=== PATIENT | female | born 1985 | race African-American/Black ===

== ENCOUNTER 2016-12-15 13:03 | Observation (INO) | payer OTHER ==
[~2016-12-15] VITALS: Ht 175.3 cm; Wt 78.9 kg
[2016-12-17] MEDS ORDERED: IRON65TA11 PO (15:34)
[2016-12-17] MEDS ORDERED: PREN-546 PO (15:34)
== END 2016-12-15 16:26 | disposition home or self-care (01) ==
LOC: MLD 13:03
PROVIDERS: ADMIT Obstetrics & Gynecology; ATTEND Obstetrics & Gynecology
DX: O36.8130 Decreased fetal movements, third trimester, not applicable or unspecified (principal); Z3A.38 38 weeks gestation of pregnancy
CPT/HCPCS: 59025; 76805; 76819; G0378; Q0092

== ENCOUNTER 2016-12-17 14:39 | Inpatient (IN) | payer OTHER ==
[~2016-12-17] VITALS: Ht 175.3 cm; Wt 78.9 kg
[2016-12-17] MEDS: LACTATED RINGERS 1,000 ML IV SCH ×2 (00:45→16:51)
[2016-12-17] MEDS ORDERED: OXYTOCIN 10 UNITS/ML VIAL IM ONE (15:25)
[2016-12-17] MEDS ORDERED: OXYTOCIN 20 UNITS/LR PREMIX 1,000 ML IV SCH (15:25)
[2016-12-17] MEDS ORDERED: METHYLERGONOVINE 0.2 MG/ML AMP IM ONE (15:25)
[2016-12-17] MEDS ORDERED: CARBOPROST 250 MCG/ML AMP IM ONE (15:25)
[2016-12-17] MEDS ORDERED: NATURAL IRON65 MG PO (15:34)
[2016-12-17] MEDS ORDERED: PRENATAL VITAMI1 TA2 PO (15:34)
[2016-12-17 15:59] VITALS: BP 104/62
[2016-12-17] MEDS ORDERED: DINOPROSTONE 10 MG SUPP VG SCH (16:25)
[2016-12-18] MEDS: LACTATED RINGERS 1,000 ML IV SCH (00:37)
[2016-12-18] MEDS ORDERED: OXYTOCIN 10 UNITS/ML VIAL ONE (04:13)
[2016-12-18] MEDS ORDERED: OXYTOCIN 20 UNITS/LR PREMIX 1,000 ML IV ONE (05:17)
--- NOTE | 2016-12-18 07:59 | NUR ---
PATIENT HAS BEEN SCREENED AND CATEGORIZED MODERATE NUTRITION RISK. PATIENT WILL BE SEEN WITHIN 3-5 DAYS OF ADMISSION. 12/20/16-12/22/[address] Addendum: 12/21/16 at [address] PATIENT HAS BEEN RESCREENED AND RECATEGORIZED LOW NUTRITION RISK. PATIENT WILL BE SEEN WITHIN 7 DAYS OF ADMISSION. 12/24/[address]
[2016-12-18] MEDS ORDERED: MISOPROSTOL 25 MCG TAB ONE ×2 (17:20→22:24)
[2016-12-19] MEDS ORDERED: NALBUPHINE 10 MG/ML AMP IVP PRN (10:25)
[2016-12-19] MEDS ORDERED: NALBUPHINE HYDROCHLORIDE 10 MG/ML VIAL ONE (10:30)
[2016-12-19] MEDS ORDERED: ROPIVACAINE 0.2%/NS PREMIX 250 ML EPI ONE (11:03)
[2016-12-19] MEDS: LACTATED RINGERS 1,000 ML IV SCH ×2 (11:12→14:23)
[2016-12-19] MEDS ORDERED: OXYTOCIN 10 UNITS/ML VIAL ONE (16:30)
[2016-12-19] MEDS ORDERED: MEASLES, MUMPS, AND RUBELLA 1 VIAL SQVAC PRN (16:50)
[2016-12-19] MEDS ORDERED: OXYTOCIN 10 UNITS/ML VIAL IM PRN (16:50)
[2016-12-19] MEDS ORDERED: BENZOCAINE/MENTHOL 20%-0.5% 60 GM CAN TP PRN (16:50)
[2016-12-19] MEDS ORDERED: TEMAZEPAM 15 MG CAP PO PRN (16:50)
[2016-12-19] MEDS ORDERED: oxyCODONE/APAP 5/325 MG 1 TAB TAB PO PRN (16:50)
[2016-12-19] MEDS ORDERED: IBUPROFEN 800 MG TAB PO PRN (16:50)
[2016-12-19] MEDS ORDERED: METHYLERGONOVINE 0.2 MG/ML AMP IM PRN (16:50)
[2016-12-19] MEDS ORDERED: DOCUSATE SOD/SENNA 50/8.6 MG 1 TAB PO SCH (21:00)
[2016-12-20] MEDS: HYDROcodone/APAP 5/325 MG 1 TAB TAB PO PRN ×2 (01:06→20:19)
[2016-12-21] MEDS: HYDROcodone/APAP 5/325 MG 1 TAB TAB PO PRN (05:51)
== END 2016-12-21 17:54 | disposition home or self-care (01) | DRG 775 ==
LOC: MLD 14:39 → MFCC 12-19 20:36
PROVIDERS: ADMIT Obstetrics & Gynecology; ATTEND Obstetrics & Gynecology
PROC: 10E0XZZ Delivery of Products of Conception, External Approach (ICD-10-PCS; principal; 2016-12-19)
PROC: 10907ZC Drainage of Amniotic Fluid, Therapeutic from Products of Conception, Via Natural or Artificial Opening (ICD-10-PCS; 2016-12-19)
PROC: 3E0P7GC Introduction of Other Therapeutic Substance into Female Reproductive, Via Natural or Artificial Opening (ICD-10-PCS; 2016-12-19)
PROC: 0HQ9XZZ Repair Perineum Skin, External Approach (ICD-10-PCS; 2016-12-19)
PROC: 00HU33Z Insertion of Infusion Device into Spinal Canal, Percutaneous Approach (ICD-10-PCS; 2016-12-19)
PROC: 3E0R3CZ (ICD-10-PCS; 2016-12-19)
DX: O70.0 First degree perineal laceration during delivery (principal); Z3A.39 39 weeks gestation of pregnancy; Z37.0 Single live birth

== ENCOUNTER 2018-04-18 07:17 | Outpatient (CLI) | payer OTHER ==
[~2018-04-18 07:17] MED LIST: FERR-252 PO; PREN-546 PO
[2018-04-18 08:17] LABS: GLUCOSE,FASTING GESTATIONAL 85 mg/dL (70-110)
[2018-04-18 08:42] LABS: BASOPHILS % (AUTO) 0.6 % (0.0-2.0); EOSINOPHILS % (AUTO) 1.2 % (0.0-4.0); HEMATOCRIT 32.3 % (36-48); HEMOGLOBIN 10.2 g/dL (12.0-16.0); LYMPHOCYTES % (AUTO) 29.1 % (20.5-51.1); MEAN CORPUSCULAR HEMOGLOBIN 26 pg (27-31); MEAN CORPUSCULAR HGB CONC 32 g/dL (33-37); MEAN CORPUSCULAR VOLUME 82.8 fL (80-94); MONOCYTES % (AUTO) 5.2 % (1.7-9.3); NEUTROPHILS % (AUTO) 63.9 % (42.2-75.2); PLATELET COUNT (AUTO) 222 K/uL (140-450); RED BLOOD CELL COUNT(AUTO) 3.91 MIL/uL (4.20-5.40); WHITE BLOOD COUNT (AUTO) 5.9 K/uL (4.8-10.8)
[2018-04-18 09:35] LABS: APPEARANCE,URINE SL CLOUDY (CLEAR); BILIRUBIN,URINE NEGATIVE (NEGATIVE); BLOOD, URINE NEGATIVE (NEGATIVE); COLOR,URINE YELLOW (YELLOW); LEUKOCYTE ESTERASE ,URINE NEGATIVE (NEGATIVE); NITRITE, URINE NEGATIVE (NEGATIVE); PH,URINE 5.5 (5.0-9.0); UGLUCOSE NEGATIVE (NEGATIVE)
[2018-04-18 10:41] LABS: CALCIUM OXALATE CRYSTALS,UR 0-10 /HPF (None Seen); RBC,URINE NONE SEEN /HPF (0-5); WBC,URINE 0-5 (RARE) /HPF (0-5)
[2018-04-19 09:07] LABS: HEPATITIS B SURFACE ANTIGEN Negative (Negative)
== END 2018-04-18 17:31 | disposition home or self-care (01) ==
LOC: MLB 07:17
PROVIDERS: ATTEND Obstetrics & Gynecology
DX: O23.10 Infections of bladder in pregnancy, unspecified trimester (principal); Z3A.00 Weeks of gestation of pregnancy not specified
CPT/HCPCS: 36415; 81001; 82951; 83036; 84702; 85025; 86592; 86702; 86762; 86886; 86900; 86901; 87086; 87340; 87491

== ENCOUNTER 2018-07-11 08:29 | Outpatient (CLI) | payer OTHER ==
[2018-07-11 09:01] LABS: BASOPHILS % (AUTO) 0.2 % (0.0-2.0); EOSINOPHILS # (AUTO) 0.1 K/uL (0-0.4); EOSINOPHILS % (AUTO) 0.7 % (0.0-4.0); HEMATOCRIT 33.8 % (36-48); HEMOGLOBIN 10.9 g/dL (12.0-16.0); LYMPHOCYTES # (AUTO) 1.9 K/uL (2.5-16.5); LYMPHOCYTES % (AUTO) 26.2 % (20.5-51.1); MEAN CORPUSCULAR HEMOGLOBIN 28 pg (27-31); MEAN CORPUSCULAR HGB CONC 32 g/dL (33-37); MEAN CORPUSCULAR VOLUME 86.2 fL (80-94); MONOCYTES # (AUTO) 0.4 K/uL (0.8-1.0); MONOCYTES % (AUTO) 5.6 % (1.7-9.3); NEUTROPHILS # (AUTO) 4.8 K/uL (1.8-7.7); NEUTROPHILS % (AUTO) 67.3 % (42.2-75.2); PLATELET COUNT (AUTO) 166 K/uL (140-450); RED BLOOD CELL COUNT(AUTO) 3.92 MIL/uL (4.20-5.40); RED CELL DISTRIBUTION WIDTH 14.4 % (11.6-13.7); WHITE BLOOD COUNT (AUTO) 7.2 K/uL (4.8-10.8)
[2018-07-11 09:19] LABS: GLUCOSE,FASTING GESTATIONAL 81 mg/dL (70-110)
[2018-07-13 06:17] LABS: CHLAMYDIA TRACHOMATIS AMP DNA Negative (Negative)
== END 2018-07-11 18:55 | disposition home or self-care (01) ==
LOC: MLB 08:29
PROVIDERS: ATTEND Obstetrics & Gynecology
DX: Z11.3 Encounter for screening for infections with a predominantly sexual mode of transmission (principal)
CPT/HCPCS: 36415; 82951; 85025; 86592; 87491

== ENCOUNTER 2018-10-01 13:23 | Inpatient (IN) | payer OTHER ==
[~2018-10-01] VITALS: Ht 175.3 cm; Wt 87.5 kg
[2018-10-01] MEDS ORDERED: OXYTOCIN 10 UNITS/ML VIAL IM SCH (13:40)
[2018-10-01] MEDS ORDERED: CARBOPROST 250 MCG/ML AMP IM PRN (13:40)
[2018-10-01] MEDS ORDERED: METHYLERGONOVINE 0.2 MG/ML AMP IM PRN (13:40)
[2018-10-01] MEDS ORDERED: OXYTOCIN 20 UNITS in LACTATED RINGERS 1,000 ML IV SCH (13:40)
[2018-10-01 14:35] LABS: BASOPHILS % (AUTO) 0.3 % (0.0-2.0); EOSINOPHILS % (AUTO) 0.7 % (0.0-4.0); HEMOGLOBIN 11.5 g/dL (12.0-16.0); LYMPHOCYTES % (AUTO) 26.7 % (20.5-51.1); MEAN CORPUSCULAR HEMOGLOBIN 27 pg (27-31); MEAN CORPUSCULAR HGB CONC 32 g/dL (33-37); MEAN CORPUSCULAR VOLUME 85.8 fL (80-94); MONOCYTES # (AUTO) 0.4 K/uL (0.8-1.0); MONOCYTES % (AUTO) 5.8 % (1.7-9.3); NEUTROPHILS % (AUTO) 66.5 % (42.2-75.2); PLATELET COUNT (AUTO) 147 K/uL (140-450); RED CELL DISTRIBUTION WIDTH 14.4 % (11.6-13.7); WHITE BLOOD COUNT (AUTO) 7.5 K/uL (4.8-10.8)
[2018-10-01 14:48] LABS: BILIRUBIN,URINE NEGATIVE (NEGATIVE); BLOOD, URINE TRACE-L (NEGATIVE); COLOR,URINE YELLOW (YELLOW); LEUKOCYTE ESTERASE ,URINE 1+ (NEGATIVE); NITRITE, URINE NEGATIVE (NEGATIVE); PH,URINE 6.5 (5.0-9.0); UGLUCOSE NEGATIVE (NEGATIVE)
[2018-10-01 14:50] LABS: APPEARANCE,URINE SLIGHTLY CLOUDY (CLEAR)
[2018-10-01] MEDS ORDERED: AMPICILLIN 2,000 MG in NACL 0.9% MINI-BAG PLUS 100 ML IV SCH (15:00)
[2018-10-01 15:02] LABS: RBC,URINE 0-5 (RARE) /HPF (0-5)
[2018-10-01] MEDS: LACTATED RINGERS 1,000 ML IV SCH ×2 (15:20→19:39)
[2018-10-01 16:16] VITALS: BP 119/67
[2018-10-01] MEDS ORDERED: fentaNYL 0.05 MG/ML VIAL IVP SCH (16:40)
[2018-10-01] MEDS ORDERED: AMPICILLIN 1,000 MG in NACL 0.9% MINI-BAG PLUS 50 ML IV SCH (20:00)
[2018-10-02] MEDS: LACTATED RINGERS 1,000 ML IV SCH ×2 (00:39→07:45)
[2018-10-02] MEDS: PROMETHAZINE 25 MG/ML VIAL IVP PRN ×2 (01:30→16:29)
[2018-10-02] MEDS: NALBUPHINE 10 MG/ML AMP IVP PRN ×2 (01:30→16:28)
[2018-10-02] MEDS ORDERED: NALBUPHINE 10 MG/ML AMP ONE ×3 (01:34→16:27)
[2018-10-02] MEDS ORDERED: PROMETHAZINE 25 MG/ML VIAL ONE ×3 (01:34→16:34)
--- NOTE | 2018-10-02 08:24 | NUR ---
PATIENT HAS BEEN SCREENED AND CATEGORIZED LOW NUTRITION RISK. PATIENT WILL BE SEEN WITHIN 7 DAYS OF ADMISSION. 10/08/[address]
[2018-10-02] MEDS ORDERED: OXYTOCIN 20 UNITS/LR PREMIX 1,000 ML IV ONE (16:24)
[2018-10-02] MEDS ORDERED: METHYLERGONOVINE 0.2 MG/ML AMP ONE ×2 (16:25→20:47)
[2018-10-02] MEDS ORDERED: OXYTOCIN 10 UNITS/ML VIAL ONE (17:24)
[2018-10-02] MEDS ORDERED: TEMAZEPAM 15 MG CAP PO PRN (19:00)
[2018-10-02] MEDS ORDERED: oxyCODONE/APAP 5/325 MG 1 TAB TAB PO PRN (19:00)
[2018-10-02] MEDS ORDERED: IBUPROFEN 800 MG TAB PO PRN (19:00)
[2018-10-02] MEDS ORDERED: MEASLES, MUMPS, AND RUBELLA 1 VIAL SQVAC PRN (19:00)
[2018-10-02] MEDS ORDERED: BENZOCAINE/MENTHOL 20%-0.5% 60 GM CAN TP PRN (19:00)
[2018-10-02] MEDS ORDERED: METHYLERGONOVINE 0.2 MG/ML AMP IM PRN (19:00)
[2018-10-02] MEDS ORDERED: OXYTOCIN 10 UNITS/ML VIAL IM PRN (19:00)
[2018-10-02] MEDS ORDERED: DOCUSATE SOD/SENNA 50/8.6 MG 1 TAB PO SCH (21:00)
[2018-10-03 06:35] LABS: HEMATOCRIT 35.3 % (36-48); HEMOGLOBIN 11.4 g/dL (12.0-16.0)
[2018-10-03] MEDS: HYDROcodone/APAP 5/325 MG 1 TAB TAB PO PRN ×2 (09:08→20:44)
== END 2018-10-04 11:00 | disposition home or self-care (01) | DRG 807 ==
LOC: MLD 13:23 → MFCC 10-02 21:30
PROVIDERS: ADMIT Obstetrics & Gynecology; ATTEND Obstetrics & Gynecology
PROC: 10E0XZZ Delivery of Products of Conception, External Approach (ICD-10-PCS; principal; 2018-10-02)
PROC: 10907ZC Drainage of Amniotic Fluid, Therapeutic from Products of Conception, Via Natural or Artificial Opening (ICD-10-PCS; 2018-10-02)
DX: O80 Encounter for full-term uncomplicated delivery (principal); Z37.0 Single live birth; Z3A.39 39 weeks gestation of pregnancy
CPT/HCPCS: 36415; 59409; 81001; 85018; 85025; 86592; 86886; 86900; 86901; 87086; J2210; J2300; J2550; J2590; J7120